=== PATIENT | male | born 1990 | race African-American/Black ===

== ENCOUNTER 2024-12-29 07:38 | Emergency (ER) | payer OTHER ==
[~2024-12-29] VITALS: Ht 182.9 cm; Wt 77.3 kg
[2024-12-29 07:44] VITALS: TEMP 98.2
[2024-12-29 07:58] VITALS: BP 156/92; PULSE 76; RESP 16; O2SAT 100
== END 2024-12-29 10:28 | disposition home or self-care (01) ==
LOC: EMS 07:38
DX: K59.00 Constipation, unspecified (principal); F17.210 Nicotine dependence, cigarettes, uncomplicated; F15.90 Other stimulant use, unspecified, uncomplicated
CPT/HCPCS: 74018; 99283